=== PATIENT | male | born 1970 | race Caucasian/White ===

== ENCOUNTER 2016-12-13 18:41 | Emergency (ER) | payer OTHER ==
[~2016-12-13] VITALS: Ht 177.8 cm; Wt 80.9 kg
[~2016-12-13 18:41] MED LIST: NORCO 325 MG-51 TAB PO; ZITHROMAX TRI-500 MG PO
[2016-12-13] MEDS ORDERED: DULOXETINE60 MG PO (18:52)
[2016-12-13 19:49] VITALS: BP 110/77
== END 2016-12-13 19:40 | disposition home or self-care (01) ==
LOC: ED 18:41
DX: H57.12 Ocular pain, left eye (principal); H10.9 Unspecified conjunctivitis